=== PATIENT | female | born 1935 | race Caucasian/White ===

== ENCOUNTER 2023-04-25 20:19 | Inpatient (IN) | payer MEDICARE ==
[~2023-04-25] VITALS: Ht 160 cm; Wt 71.7 kg
[2023-04-25 20:28] VITALS: BP_SYST 127; PULSE 65; RESP 16; TEMP 97.9; O2SAT 98
[2023-04-25 21:23] LABS: BASOPHILS % (AUTO) 0.6 % (0.0-2.0); EOSINOPHILS # (AUTO) 0.1 K/uL (0.0-0.4); EOSINOPHILS % (AUTO) 1.7 % (0.0-4.0); HEMATOCRIT 35.4 % (36-48); HEMOGLOBIN 11.7 g/dL (12.0-16.0); LYMPHOCYTES # (AUTO) 1.5 K/uL (1.0-5.5); LYMPHOCYTES % (AUTO) 24.4 % (20.5-51.5); MEAN CORPUSCULAR HEMOGLOBIN 34 pg (27-31); MEAN CORPUSCULAR HGB CONC 33 % (32-36); MEAN CORPUSCULAR VOLUME 104 fL (79.0-98.0); MONOCYTES # (AUTO) 0.5 K/uL (0.0-1.0); MONOCYTES % (AUTO) 8.1 % (1.7-9.3); NEUTROPHILS % (AUTO) 65.2 % (40.0-70.0); PLATELET COUNT (AUTO) 277 K/uL (130-430); RED BLOOD CELL COUNT(AUTO) 3.41 MIL/uL (4.2-6.2); RED CELL DISTRIBUTION WIDTH 15.3 % (9.0-15.0); WHITE BLOOD COUNT (AUTO) 6.2 K/uL (4.8-10.8)
[2023-04-25 21:34] LABS: ANION GAP 10 (5-15); CALCIUM 9.1 mg/dL (8.4-11.0); CARBON DIOXIDE 22 mmol/L (23-29); CHLORIDE 106 mmol/L (98-107); CREATININE 1.14 mg/dL (0.55-1.30); GLUCOSE 139 mg/dL (74-106); POTASSIUM 4.1 mmol/L (3.5-5.1); SODIUM SERUM 138 mmol/L (136-145); UREA NITROGEN, BLOOD 12 mg/dL (8-21)
[2023-04-25 21:53] LABS: ALANINE AMINOTRANSFERASE 13 U/L (12-78); ALBUMIN 3.3 g/dL (3.4-4.8); ASPARTATE AMINOTRANSFERASE 15 U/L (10-37); TOTAL BILIRUBIN 0.2 mg/dL (0.0-1.0); TOTAL PROTEIN, SERUM 7.6 g/dL (6.4-8.3)
[2023-04-26] VITALS (7 sets, daily range): BP systolic 127–159; PULSE 60–74; RESP 15–17; TEMP 97.1–98.2; O2SAT 95–99
[2023-04-26 00:29] LABS: BILIRUBIN,URINE NEGATIVE (NEGATIVE); BLOOD, URINE NEGATIVE (NEGATIVE); CLARITY/URINE CLEAR (CLEAR); COLOR,URINE YELLOW (YELLOW); GLUCOSE,URINE NEGATIVE (NEGATIVE); KETONES,URINE NEGATIVE (NEGATIVE); LEUKOCYTE ESTERASE ,URINE NEGATIVE (NEGATIVE); PH,URINE 5.5 (5.0-8.0); PROTEIN URINE NEGATIVE (NEGATIVE); UROBILINOGEN,URINE 0.2 (0.2-1.0)
[2023-04-26] MEDS ORDERED: MECLIZINE HCL 25 MG TABLET (ANITVERT) PO ONE (00:30)
[2023-04-26 01:05] LABS: NITRITE, URINE NEGATIVE (NEGATIVE)
[2023-04-26] MEDS ORDERED: ASPIRIN 325 MG TABLET PO ONE (02:15)
[2023-04-26] MEDS ORDERED: LOSA25TA18 PO (05:41)
[2023-04-26] MEDS ORDERED: BISO10TA29 PO (05:41)
[2023-04-26] MEDS ORDERED: AMLO5TAB92 PO (05:41)
[2023-04-26] MEDS ORDERED: BENZ100C92 PO (05:41)
[2023-04-26] MEDS ORDERED: FURO40TA5 PO (05:41)
[2023-04-26] MEDS ORDERED: LEVO25TA7 PO (05:41)
[2023-04-26] MEDS ORDERED: NITR0.4T47 SL (05:41)
[2023-04-26] MEDS ORDERED: RANO500T4 PO (05:41)
[2023-04-26] MEDS ORDERED: RANO10004 PO (05:41)
[2023-04-26] MEDS ORDERED: ONDA-8 PO (05:41)
[2023-04-26] MEDS ORDERED: POTA-178 (06:20)
[2023-04-26] MEDS ORDERED: ALBMDI INH (06:20)
[2023-04-26] MEDS ORDERED: PHEN100C4 (06:20)
[2023-04-26] MEDS ORDERED: CLOP75TA32 PO (06:20)
[2023-04-26] MEDS ORDERED: ATOR40TA68 PO (06:20)
[2023-04-26] MEDS ORDERED: ERGO1250 (06:20)
[2023-04-26] MEDS ORDERED: ISOS60TA71 PO (06:20)
[2023-04-26] MEDS ORDERED: VITA1CAP PO (06:20)
[2023-04-26] MEDS ORDERED: LEVO50TA8 PO (06:20)
[2023-04-26] MEDS ORDERED: TRAZ-250 PO (06:20)
[2023-04-26] MEDS ORDERED: MORPHINE 2 MG/ML INJ. SYRINGE IVP PRN (07:45)
[2023-04-26] MEDS ORDERED: NALOXONE HCL 2 MG/2 ML SYR IVP PRN ×2 (07:45)
[2023-04-26] MEDS ORDERED: ZOLPIDEM TARTRATE 5 MG TABLET PO PRN (07:45)
[2023-04-26] MEDS ORDERED: POTASSIUM CHLORIDE 20 MEQ TABLET.ER PO PRN (07:45)
[2023-04-26] MEDS ORDERED: ONDANSETRON HCL 4 MG/2 ML VIAL IVP PRN (07:45)
[2023-04-26] MEDS ORDERED: LORazepam 2 MG/ML VIAL IVP PRN (07:45)
[2023-04-26] MEDS ORDERED: ACETAMINOPHEN 500 MG TABLET PO PRN ×2 (07:45→09:45)
[2023-04-26] MEDS ORDERED: MAGNESIUM SULFATE 50 ML IV PRN (07:45)
[2023-04-26] MEDS ORDERED: DOCUSATE SODIUM 100 MG CAPSULE PO PRN (07:45)
[2023-04-26] MEDS ORDERED: MUPIROCIN 2% TOPICAL OINTMENT 22 GM NS PRN (07:45)
[2023-04-26] MEDS ORDERED: ALBUTEROL SULFATE 0.083% 2.5 MG/3 ML VIAL.NEB INH PRN (07:45)
[2023-04-26] MEDS ORDERED: HEPARIN SODIUM,PORCINE 5,000 UNITS/ML VIAL SUBCUT SCH (09:00)
[2023-04-26 09:09] LABS: HEMOGLOBIN A1C 5.22 % (<5.7); THYROID STIMULATING HORMONE 2.86 uIu/mL (0.34-4.82)
[2023-04-26] MEDS: FUROSEMIDE 20 MG TABLET PO SCH (09:47)
[2023-04-26] MEDS: ASPIRIN 81 MG TAB.CHEW PO SCH (09:48)
[2023-04-26] MEDS: CLOPIDOGREL BISULFATE 75 MG TABLET PO SCH (09:48)
[2023-04-26] MEDS: ATORVASTATIN 20 MG TABLET PO SCH (09:48)
[2023-04-26] MEDS: ATENOLOL 50 MG TABLET (TENORMIN) PO SCH (09:51)
[2023-04-26] MEDS: LEVOTHYROXINE SODIUM 0.05 MG TABLET PO SCH (09:51)
[2023-04-26] MEDS: ISOSORBIDE MONONITRATE 30 MG TAB.ER.24H PO SCH (10:00)
[2023-04-26] MEDS: PHENYTOIN 100 MG CAPSULE PO SCH ×2 (10:00→20:25)
[2023-04-26] MEDS: NACL 0.9% 1,000 ML IV SCH ×2 (10:01→20:25)
[2023-04-26] MEDS ORDERED: traZODone HCL 50 MG TABLET (DESYREL) PO SCH (21:00)
[2023-04-26] MEDS: MORPHINE 2 MG/ML INJ. SYRINGE IVP PRN (22:08)
[2023-04-27 00:13] VITALS: BP_SYST 147; PULSE 59; RESP 16; TEMP 97.3; O2SAT 94
[2023-04-27] MEDS: MORPHINE 2 MG/ML INJ. SYRINGE IVP PRN (04:33)
[2023-04-27 04:36] VITALS: BP_SYST 136; PULSE 62; RESP 16; TEMP 97.2; O2SAT 95
[2023-04-27 07:54] VITALS: O2SAT 94
[2023-04-27 08:00] VITALS: BP_SYST 154; RESP 18; TEMP 97.2; O2SAT 98
[2023-04-27 08:08] LABS: BASOPHILS % (AUTO) 0.4 % (0.0-2.0); EOSINOPHILS # (AUTO) 0.1 K/uL (0.0-0.4); EOSINOPHILS % (AUTO) 2.3 % (0.0-4.0); HEMATOCRIT 36.8 % (36-48); HEMOGLOBIN 11.8 g/dL (12.0-16.0); LYMPHOCYTES # (AUTO) 1.6 K/uL (1.0-5.5); LYMPHOCYTES % (AUTO) 24.3 % (20.5-51.5); MEAN CORPUSCULAR HEMOGLOBIN 33 pg (27-31); MEAN CORPUSCULAR HGB CONC 32 % (32-36); MEAN CORPUSCULAR VOLUME 104 fL (79.0-98.0); MONOCYTES # (AUTO) 0.4 K/uL (0.0-1.0); MONOCYTES % (AUTO) 6.3 % (1.7-9.3); NEUTROPHILS # (AUTO) 4.3 K/uL (1.8-7.7); NEUTROPHILS % (AUTO) 66.7 % (40.0-70.0); PLATELET COUNT (AUTO) 237 K/uL (130-430); RED BLOOD CELL COUNT(AUTO) 3.54 MIL/uL (4.2-6.2); RED CELL DISTRIBUTION WIDTH 14.9 % (9.0-15.0); WHITE BLOOD COUNT (AUTO) 6.5 K/uL (4.8-10.8)
[2023-04-27] MEDS: ASPIRIN 81 MG TAB.CHEW PO SCH (08:12)
[2023-04-27] MEDS: CLOPIDOGREL BISULFATE 75 MG TABLET PO SCH (08:13)
[2023-04-27] MEDS: FUROSEMIDE 20 MG TABLET PO SCH (08:13)
[2023-04-27] MEDS: ISOSORBIDE MONONITRATE 30 MG TAB.ER.24H PO SCH (08:14)
[2023-04-27] MEDS: LEVOTHYROXINE SODIUM 0.05 MG TABLET PO SCH (08:14)
[2023-04-27] MEDS: ATORVASTATIN 20 MG TABLET PO SCH (08:14)
[2023-04-27] MEDS: PHENYTOIN 100 MG CAPSULE PO SCH (08:15)
[2023-04-27 08:27] LABS: ANION GAP 9 (5-15); CALCIUM 7.8 mg/dL (8.4-11.0); CARBON DIOXIDE 23 mmol/L (23-29); CHLORIDE 109 mmol/L (98-107); CREATININE 0.73 mg/dL (0.55-1.30); GLUCOSE 100 mg/dL (74-106); POTASSIUM 3.5 mmol/L (3.5-5.1); SODIUM SERUM 141 mmol/L (136-145); UREA NITROGEN, BLOOD 10 mg/dL (8-21)
[2023-04-27] MEDS: ATENOLOL 50 MG TABLET (TENORMIN) PO SCH (09:00)
[2023-04-27 12:28] VITALS: BP_SYST 154; PULSE 58; RESP 18; TEMP 97.2; O2SAT 98
== END 2023-04-27 15:10 | disposition home or self-care (01) | DRG 73 ==
LOC: SED 20:19 → STU 04-26 02:25
PROVIDERS: ADMIT General Practice; ATTEND General Practice
DX: G90.8 Other disorders of autonomic nervous system (principal); I21.A1 Myocardial infarction type 2; E44.1 Mild protein-calorie malnutrition; E03.9 Hypothyroidism, unspecified; Z20.822 Contact with and (suspected) exposure to COVID-19; I10 Essential (primary) hypertension; G40.909 Epilepsy, unspecified, not intractable, without status epilepticus; E78.5 Hyperlipidemia, unspecified; F32.A Depression, unspecified; F41.9 Anxiety disorder, unspecified; I25.10 Atherosclerotic heart disease of native coronary artery without angina pectoris; Z95.5 Presence of coronary angioplasty implant and graft; Z90.49 Acquired absence of other specified parts of digestive tract; Z90.11 Acquired absence of right breast and nipple; Z79.82 Long term (current) use of aspirin; Z88.0 Allergy status to penicillin; Z79.899 Other long term (current) drug therapy; Z68.28 Body mass index [BMI] 28.0-28.9, adult
CPT/HCPCS: 36415; 70450-TC; 71045; 76376; 80048; 80053; 81001; 81003; 83037; 83605; 83735; 83880; 84443; 84484; 85025; 87040; 93005; 93306; 94760; 97110-GP; 97116-GP; 97530-GP; 99285; G0378; J2270; J8597